=== PATIENT | male | born 1985 | race Caucasian/White ===

== ENCOUNTER 2017-09-23 13:59 | Emergency (ER) | payer SELFPAY ==
--- NOTE | 2017-09-23 19:54 | CT ---
CT OF THE BRAIN WITHOUT CONTRAST 09/23/[address] shows normal sized ventricles with no shift. No intracranial bleeding was found. Th ere is no sign of stroke, mass, or edema. The calvarium appears normal. The visible paranasal sinuses are clear. IMPRESSION: No acute intracranial finding. POS: HOME
== END 2017-09-23 15:00 | disposition home or self-care (01) ==
LOC: BURERS 13:59
DX: J01.90 Acute sinusitis, unspecified (principal); F17.210 Nicotine dependence, cigarettes, uncomplicated
CPT/HCPCS: 70450